=== PATIENT | male | born 1990 | race Hispanic/Latino ===

== ENCOUNTER 2023-03-18 03:32 | Observation (INO) | payer SELFPAY ==
[2023-03-18] MEDS ORDERED: Ondansetron PF 4 MG/2 ML Vial ONE (03:48)
[2023-03-18] MEDS ORDERED: Pantoprazole 40 MG VIAL ONE (03:48)
[2023-03-18 04:02] LABS: Actual Bicarbonate (HCO3v) 30.6 mEq/L (22-28); Base Excess 7.4 mEq/L (-2.0 to +3.0); Calcium, Ionized (venous) 0.96 mmol/L (1.16-1.32); Chloride (VBG) 81 mmol/L (98-106); Hematocrit-VBG 60 % (42.0-52.0); Hemoglobin (Hb) 20.5 g/dL (13.2-17.3); Potassium (VBG) 3.53 mmol/L (3.70-5.30); Sodium 140 mmol/L (133-146); pH (venous) 7.521 (7.32-7.43)
[2023-03-18 04:03] LABS: #Basophils 0.1 thou/uL (0.0-0.2); #Monocytes 0.6 thou/uL (0.11-0.59); %Basophils 0.2 % (0.0-1.0); %Lymphocytes 3.3 % (21.0-51.0); %Monocytes 2.6 % (0.0-10.0); %Neutrophils 93.6 % (42.0-75.0); Hematocrit 53.3 % (42.0-52.0); Hemoglobin 19.3 g/dL (14.0-18.0); Mean Corpuscular HGB CONC 36.2 g/dL (32.0-36.0); Mean Corpuscular Hemoglobin 29.6 pg (27.0-31.0); Mean Corpuscular Volume 81.7 fl (78.0-98.0); Mean Platelet Volume 9.7 fL (7.4-10.4); Platelet Count 223 10x3/uL (130-400); RBC Distribution Width 12.3 % (11.5-14.5); Red Blood Cell (RBC) Count 6.52 mill/uL (4.70-6.10); White Blood Cell (WBC) Count 22.5 10x3/uL (4.8-10.8)
[2023-03-18 04:28] LABS: ALT (SGPT) 41 U/L (8-55); AST (SGOT) 59 U/L (5-34); Albumin 5.1 g/dL (3.5-5.0); Alkaline Phosphatase 130 U/L (40-110); Anion Gap 32 mmol/L (10-20); BUN (Urea Nitrogen) 18 mg/dL (8.9-20.6); Bilirubin, Total 2.1 mg/dL (0.2-1.2); Calc. Creatinine Clearance 0 mL/min (70-130); Calcium 9.6 mg/dL (7.8-10.44); Carbon Dioxide 30 mmol/L (22-29); Chloride 79 mmol/L (98-107); Estimated GFR 29; Globulin 3.9 g/dL (2.4-3.5); Glucose 150 mg/dL (70-105); Lipase 10 U/L (8-78); Potassium 3.3 mmol/L (3.5-5.1); Sodium 138 mmol/L (136-145)
[2023-03-18 04:30] LABS: Critical Call Chem-Lactate NUR.RO@0430
[2023-03-18 04:36] LABS: Troponin I Less than 0.010 ng/mL (< 0.028)
[2023-03-18 04:38] LABS: PTT 26.7 sec (22.9-36.1); Prothrombin Time 13.6 sec (12.0-14.7)
[2023-03-18] MEDS ORDERED: Potassium Chloride 20 MEQ TAB ONE (04:52)
[2023-03-18] MEDS ORDERED: cefTRIAXone (ROCEPHIN) 1 GM VIAL ONE (04:52)
[2023-03-18] MEDS ORDERED: Sodium Chloride 0.9% 100 ML ONE (04:52)
[2023-03-18] MEDS ORDERED: Metoclopramide HCl 10 MG (2 mL) VIAL ONE (05:01)
[2023-03-18] MEDS ORDERED: diphenhydrAMINE 50 MG/ML VIAL ONE (05:06)
[2023-03-18] MEDS ORDERED: Ondansetron PF 4 MG/2 ML Vial IVP PRN (06:45)
[2023-03-18] MEDS ORDERED: Ondansetron ODT 4 MG TAB PO PRN (06:46)
[2023-03-18] MEDS ORDERED: Acetaminophen 325 MG TAB PO PRN (06:46)
[2023-03-18 07:06] LABS: Lactic Acid 2.2 mmol/L (0.5-2.2)
[2023-03-18 07:45] VITALS: BMI 24.2
[2023-03-18] MEDS ORDERED: Iopamidol 370 76% 100 ML VIAL ONE (09:22)
[2023-03-18] MEDS: Lactated Ringer's 1,000 ML IV SCH ×2 (09:49→15:46)
[2023-03-19] MEDS ORDERED: cefTRIAXone\\ROCEPHIN 1 GM in Sodium Chloride 0.9% 100 ML IVPB SCH (05:00)
[2023-03-19 05:39] LABS: #Eosinphils 0.1 thou/uL (0.0-0.7); #Monocytes 0.4 thou/uL (0.11-0.59); #Neutrophils 3.7 thou/uL (1.40-6.50); %Basophils 0.4 % (0.0-1.0); %Eosinophils 0.9 % (0.0-10.0); %Lymphocytes 25.9 % (21.0-51.0); %Neutrophils 65.4 % (42.0-75.0); Mean Corpuscular HGB CONC 35.7 g/dL (32.0-36.0); Mean Corpuscular Hemoglobin 30.2 pg (27.0-31.0); Mean Corpuscular Volume 84.8 fl (78.0-98.0); Mean Platelet Volume 10.7 fL (7.4-10.4); Platelet Count 92 10x3/uL (130-400); Red Blood Cell (RBC) Count 4.73 mill/uL (4.70-6.10); White Blood Cell (WBC) Count 5.7 10x3/uL (4.8-10.8)
[2023-03-19 06:07] LABS: Hemoglobin 14.3 g/dL (14.0-18.0)
[2023-03-19 06:08] LABS: Hematocrit 40.1 % (42.0-52.0)
[2023-03-19 06:18] LABS: ALT (SGPT) 29 U/L (8-55); AST (SGOT) 43 U/L (5-34); Albumin 3.8 g/dL (3.5-5.0); Alkaline Phosphatase 82 U/L (40-110); Anion Gap 13 mmol/L (10-20); BUN (Urea Nitrogen) 13 mg/dL (8.9-20.6); Bilirubin, Total 1.8 mg/dL (0.2-1.2); Calc. Creatinine Clearance 98 mL/min (70-130); Calcium 8.6 mg/dL (7.8-10.44); Carbon Dioxide 30 mmol/L (22-29); Chloride 95 mmol/L (98-107); Estimated GFR 98; Globulin 2.7 g/dL (2.4-3.5); Glucose 105 mg/dL (70-105); Potassium 2.8 mmol/L (3.5-5.1); Protein, Total 6.5 g/dL (6.0-8.3); Sodium 135 mmol/L (136-145)
[2023-03-19] MEDS ORDERED: Potassium Chloride 20 MEQ TAB PO SCH ×2 (08:45→17:00)
[2023-03-19] MEDS ORDERED: FLU VACC QS2023-24(6MOS UP)/PF 60 MCG/0.5 ML SYRINGE IM ONE (09:00)
[2023-03-19 12:15] VITALS: BP 140/84; TEMP 97.7
== END 2023-03-19 18:04 | disposition home or self-care (01) ==
LOC: ERS 03:32 → EDBD 03:32 → ERHOLD 06:09 → 2NO 06:21
PROVIDERS: ADMIT Student in an Organized Health Care Education/Training Program; ATTEND Family Medicine
DX: N17.9 Acute kidney failure, unspecified (principal); E86.0 Dehydration; E87.20 Acidosis, unspecified; R74.01 Elevation of levels of liver transaminase levels; R11.2 Nausea with vomiting, unspecified; K21.9 Gastro-esophageal reflux disease without esophagitis; F10.10 Alcohol abuse, uncomplicated; F12.10 Cannabis abuse, uncomplicated; F19.10 Other psychoactive substance abuse, uncomplicated; F17.200 Nicotine dependence, unspecified, uncomplicated
CPT/HCPCS: 36415; 71045; 74177; 80053; 82274; 82805; 83605; 83690; 83735; 84484; 85025; 85610; 85730; 86850; 86900; 86901; 87040; 93005; 96361; 96365; 96375; 96376; C9113; G0378; J0696; J1200; J2405; J2765; J3490; J7120; Q9967

== ENCOUNTER 2023-09-11 02:51 | Emergency (ER) | payer OTHER, SELFPAY ==
[2023-09-11] MEDS ORDERED: Ketorolac Tromethamine 30 MG (1 mL) VIAL ONE (04:09)
[2023-09-11 04:14] LABS: #Basophils 0.05 10x3/uL (0.0-0.2); #Eosinphils Less than 0.03 10x3/uL (0.0-0.7); %Basophils 0.6 % (0.0-1.0); %Eosinophils 0.1 % (0.0-10.0); %Monocytes 4.4 % (0.0-10.0); %Neutrophils 70.6 % (42.0-75.0); Hematocrit 47.3 % (42.0-52.0); Hemoglobin 16.7 g/dL (14.0-18.0); Mean Corpuscular HGB CONC 35.3 g/dL (32.0-36.0); Mean Corpuscular Hemoglobin 29.1 pg (27.0-31.0); Mean Corpuscular Volume 82.5 fL (78.0-98.0); Mean Platelet Volume 9.3 fL (7.4-10.4); Platelet Count 242 10x3/uL (130-400); RBC Distribution Width 13.2 % (11.5-14.5); Red Blood Cell (RBC) Count 5.73 mill/uL (4.70-6.10)
[2023-09-11 04:28] LABS: Bacteria/HPF None Seen HPF (None Seen); Bilirubin Negative (Negative); Blood, Urine Negative (Negative); CAUTI Indications for Culture Pelvic or flank pain; Clarity Clear (Clear); Glucose, Urine (Dipstick) Normal (Negative); Ketone, Urine Trace mg/dL (Negative); Leukocyte 25 Leu/uL (Negative); Nitrite Negative (Negative); Protein, Urine (Dipstick) Negative (Neg-Trace); RBC/HPF None Seen HPF (0-3); Squamous Epithelial None Seen HPF (0-3); Urobilinogen Normal mg/dL (Less than 2); pH, Urine 6.5 (5.0-9.0)
[2023-09-11 04:29] LABS: Urine Culture Reflex No No
[2023-09-11 04:34] LABS: ALT (SGPT) 18 U/L (8-55); AST (SGOT) 22 U/L (5-34); Albumin 4.4 g/dL (3.5-5.0); Alkaline Phosphatase 95 U/L (40-110); Anion Gap 20 mmol/L (10-20); BUN (Urea Nitrogen) 4 mg/dL (8.9-20.6); Bilirubin, Total 0.6 mg/dL (0.2-1.2); Calc. Creatinine Clearance 0 mL/min (70-130); Carbon Dioxide 21 mmol/L (22-29); Chloride 104 mmol/L (98-107); Estimated GFR 119; Globulin 3.2 g/dL (2.4-3.5); Glucose 90 mg/dL (70-105); Lipase 16 U/L (8-78); Protein, Total 7.6 g/dL (6.0-8.3); Sodium 141 mmol/L (136-145)
[2023-09-11] MEDS ORDERED: Ondansetron PF 4 MG/2 ML Vial ONE (05:22)
[2023-09-11] MEDS ORDERED: Iopamidol 370 76% 100 ML VIAL ONE (12:18)
== END 2023-09-11 07:34 | disposition home or self-care (01) ==
LOC: ERS 02:51 → EEVIPCON 02:51 → ERS 07:34
DX: K40.90 Unilateral inguinal hernia, without obstruction or gangrene, not specified as recurrent (principal); F17.210 Nicotine dependence, cigarettes, uncomplicated; Z55.6 Problems related to health literacy; Z75.8 Other problems related to medical facilities and other health care
CPT/HCPCS: 74177; 80053; 81001; 83690; 85025; J1885; J2405; Q9967